=== PATIENT | male | born 1950 | race Caucasian/White ===

== ENCOUNTER 2025-06-18 17:04 | Emergency (ER) | payer BC, MEDICAID ==
[~2025-06-18] VITALS: Ht 180.3 cm; Wt 68.0 kg
[2025-06-18 17:06] VITALS: BP 142/81
[2025-06-18] MEDS ORDERED: CEFTRIAXONE /D5W 50ML IVPB **ER PYXIS IV ONE (17:23)
[2025-06-18] MEDS: IV NORMAL SALINE 1000 ML BAG IV ONE (17:30)
[2025-06-18 17:33] LABS: PLATELET COUNT (AUTO) 377 K/uL (152-348); RED BLOOD CELL COUNT(AUTO) 4.28 MIL/uL (4.06-5.63); RED CELL DISTRIBUTION WIDTH 13.6 % (12.1-16.2); WHITE BLOOD COUNT (AUTO) 10.4 K/uL (3.6-10.2)
[2025-06-18 17:42] LABS: CREATININE 1.7 mg/dL (0.6-1.3); ETHANOL < 3 MG/DL (0-10); SODIUM SERUM 139 mmol/L (136-145); UREA NITROGEN, BLOOD 30 mg/dL (7-18)
[2025-06-18 17:48] LABS: ASPARTATE AMINOTRANSFERASE 9 U/L (15-37); TOTAL PROTEIN, SERUM 6.8 g/dL (6.4-8.2)
[2025-06-18] MEDS ORDERED: DEXAMETHASONE SOD PHOSPHATE 10 MG INJ ONE (18:17)
[2025-06-18] MEDS ORDERED: KETOROLAC TROMETHAMINE 15 MG INJ ONE (18:17)
[2025-06-18] MEDS: KETOROLAC TROMETHAMINE 15 MG INJ IVP ONE (18:24)
[2025-06-18] MEDS: DEXAMETHASONE SOD PHOSPHATE 4 MG INJ IV ONE (18:24)
[2025-06-18] MEDS ORDERED: LIDOCAINE 2% (GLYDO= UROJET) 10 ML JELLY MM ONE (18:30)
[2025-06-18] MEDS: LIDOCAINE 2% (GLYDO= UROJET) 10 ML JELLY MM ONE (18:33)
[2025-06-18 18:52] LABS: *BILIRUBIN,URIN NEGATIVE (NEGATIVE); *CLARITY,URINE CLEAR (CLEAR); *COLOR,URINE YELLOW (YELLOW); *KETONES,URINE NEGATIVE (NEGATIVE); *PROTEIN,URINE NEGATIVE (NEGATIVE); *UROBILINOGEN,URINE 0.2 E.U./dl (NORMAL); LEUKOCYTE ESTERASE ,URINE NEGATIVE (NEGATIVE); NITRITE, URINE NEGATIVE (NEGATIVE); UGLUCOSE NEGATIVE (NEGATIVE)
[2025-06-18 18:55] LABS: *BLOOD, URINE TRACE (NEGATIVE)
[2025-06-18 18:59] LABS: SQUAMOUS EPITHELIAL CELL,UR FEW /HPF (NONE SEEN)
[2025-06-18 19:04] LABS: *AMPHETAMINE, URINE POSITIVE (NEGATIVE); *BARBITURATE, URINE NEGATIVE (NEGATIVE); *BENZODIAZEPINE, URINE NEGATIVE (NEGATIVE); *CANNABINOID, URINE NEGATIVE (NEGATIVE); *COCCAINE, URINE NEGATIVE (NEGATIVE); *OPIATE, URINE NEGATIVE (NEGATIVE); *PHENCYCLIDINE SCREEN,URINE NEGATIVE (NEGATIVE); FENTANYL, URINE NEGATIVE (NEGATIVE)
[2025-06-18] MEDS ORDERED: HALOPERIDOL LACTATE 5 MG/1 ML VIAL ONE (19:29)
[2025-06-18] MEDS: HALOPERIDOL LACTATE 5 MG/1 ML VIAL IM ONE (19:40)
[2025-06-18] MEDS ORDERED: ZOLPIDEM 5 MG TABLET PO PRN (19:45)
[2025-06-18] MEDS ORDERED: REMEDY ESSENTIAL ZINC PASTE 113 GM TP PRN (19:45)
[2025-06-18] MEDS ORDERED: MAGNESIUM HYDROXIDE 30 ML LIQUID UDC PO PRN (19:45)
[2025-06-18] MEDS ORDERED: IV 1/2NS 1000 ML 1,000 ML IV PRN (19:45)
[2025-06-18] MEDS ORDERED: ACETAMINOPHEN 325 MG TABLET PO PRN (19:45)
[2025-06-18] MEDS ORDERED: ONDANSETRON 4 MG/2 ML VIAL IV PRN (19:45)
[2025-06-18 20:06] VITALS: BP 142/81; TEMP 98; O2SAT 95
[2025-06-18] MEDS ORDERED: ENOXAPARIN SODIUM 40 MG/0.4 ML DISP.SYRIN SQ SCH (21:00)
[2025-06-19] MEDS ORDERED: PANTOPRAZOLE SODIUM 40 MG TABLET.DR PO SCH (07:00)
[2025-06-19 07:28] LABS: PLATELET COUNT (AUTO) 149 K/uL (152-348); RED BLOOD CELL COUNT(AUTO) 4.52 MIL/uL (4.06-5.63); RED CELL DISTRIBUTION WIDTH 15.2 % (12.1-16.2); WHITE BLOOD COUNT (AUTO) 6.7 K/uL (3.6-10.2)
[2025-06-19 07:48] LABS: CREATININE 1.0 mg/dL (0.6-1.3); SODIUM SERUM 141 mmol/L (136-145); UREA NITROGEN, BLOOD 24 mg/dL (7-18)
== END 2025-06-18 19:43 | disposition left against medical advice (07) ==
LOC: ER 17:07 → UNDOADMIN 18:57 → TELE3 18:57 → UNDODISIN 19:43
DX: H91.91 Unspecified hearing loss, right ear (principal)
CPT/HCPCS: 36415; 71045; 83605; 83735; 84100; 84443; 84484; 85025; 85730; 87040; 87086; A4606; A4663; C1758; G0378; G0480; J0696; J1100; J1630; J1885; J7040